=== PATIENT | male | born 1940 | race Hispanic/Latino ===

== ENCOUNTER 2017-12-28 12:11 | Emergency (ER) | payer MEDICARE, OTHER ==
[~2017-12-28 12:11] MED LIST: AMLODIPINE BESY10 MG PO; ANTIVERT25 MG PO; ASPIR 8181 MG PO; AVODART0.5 MG PO; LEVAQUIN500 MG PO; MULTIPLE VITAM1 EAC1 PO; PRAZOSIN HCL2 MG PO; VITAMIN D-32000 UNIT PO
[2017-12-28] MEDS ORDERED: ONDANSETRON HCL 4 MG ORAL DISINTEGRATING TAB SL ONE (12:45)
[2017-12-28] MEDS ORDERED: ZOFRAN ODT4 MG SL (14:10)
== END 2017-12-28 14:25 | disposition home or self-care (01) ==
LOC: FSED 12:11
DX: R11.0 Nausea (principal); I10 Essential (primary) hypertension
CPT/HCPCS: 71046; 80048; 80076; 82553; 84484; 85025; 87400; 93005; 99283

== ENCOUNTER → 2018-01-13 | Outpatient (CLI) | payer MEDICARE, OTHER ==
[~2018-01-13] MED LIST changes: +ZOFRAN ODT4 MG SL
--- NOTE | 2018-01-13 12:48 | Diagnostic Imaging Report ---
History:Headaches, nausea, dizziness Comparison studies:None Technique: Axial images were obtained from the skull base to the vertex. Coronal and sagittal images reconstructed from the axial data. Intravenous contrast: None Findings: Scalp/skull: No abnormalities. Extra-axial spaces: No masses. No fluid collections. Brain sulci: Age-appropriate. Ventricles: Age-appropriate. No hydrocephalus. Parenchyma: Subcentimeter hypodensity at the left basal ganglia region, could be related to prominent perivascular space or chronic lacunar infarct, no other abnormal density. No masses, hemorrhage, acute or chronic cortical vascular insults. Sellar/suprasellar region: No abnormalities. Craniocervical junction: Patent foramen magnum. No Chiari one malformation. Incidental findings: Atherosclerotic calcifications in the carotid siphons . Impression: No acute abnormalities. Signed by: DR Fernie Vidal M.D. on 01/13/2018 12:44 PM
== END ==
LOC: CT 10:58
PROVIDERS: ATTEND Family Medicine
DX: R42 Dizziness and giddiness (principal); R51 Headache
CPT/HCPCS: 70450

== ENCOUNTER → 2018-03-30 | Outpatient (CLI) | payer MEDICARE, OTHER ==
--- NOTE | 2018-03-30 10:38 | Diagnostic Imaging Report ---
PROCEDURE:C-SPINE COMPLETE COMPARISON:None. INDICATIONS:RIGHT SIDE NECK PAIN 1 MONTH FINDINGS: The lateral view is visualized from the skull base to the lower aspect of C7. The vertebral bodies are well-aligned. There are no fractures, lytic or blastic lesions. Mild multilevel degenerative disc changes are noted at C4-C5, C5-C6, and C6-C7 with mild bony neural foraminal stenosis at C3-C4 and C4-C5. The C1/C2-odontoid interval is normal. The pre-vertebral soft tissues are normal. CONCLUSION: No acute radiographic abnormality. Mild cervical multilevel degenerative disc changes with mild neural foraminal stenosis at C3-C4 and C4-C5. Dictated by: NICANOR BAKER M.D. on 03/30/2018 at 10:42 Electronically approved by: NICANOR BAKER M.D. on 03/30/2018 at 10:42
--- NOTE | 2018-03-30 10:42 | Diagnostic Imaging Report ---
PROCEDURE:L-SPINE COMPLETE COMPARISON:None. INDICATIONS:LOWER BACK PAIN 1 MONTH FINDINGS: There are five lumbar-type vertebral bodies. Mild anterolisthesis of L5 on S1. No evidence of spondylolisthesis. There are no fractures, lytic or blastic lesions. The disc-space heights are well-maintained. Mild degenerative disc changes at L3-L4, L4-L5 and L5-S1. Mild facet degenerative changes at L4-L5 and L5-S1 and mild bony neural foraminal stenosis at L5-S1. The sacroiliac joints are unremarkable. CONCLUSION: Mild degenerative endplate and facet degenerative changes in the lower lumbar spine with mild bony neural foraminal stenosis at L5-S1. No evidence of fracture. Dictated by: NICANOR BAKER M.D. on 03/30/2018 at 10:46 Electronically approved by: NICANOR BAKER M.D. on 03/30/2018 at 10:46
== END ==
LOC: RAD 09:28
PROVIDERS: ATTEND Family Medicine
DX: M47.896 Other spondylosis, lumbar region (principal); M54.2 Cervicalgia; M79.652 Pain in left thigh; M79.651 Pain in right thigh
CPT/HCPCS: 72050; 72110

== ENCOUNTER 2018-04-16 07:47 | Emergency (ER) | payer MEDICARE, OTHER ==
[~2018-04-16] VITALS: Ht 180.3 cm; Wt 104.3 kg
[2018-04-16] MEDS ORDERED: TIZANIDINE HCL4 MG PO (08:17)
[2018-04-16] MEDS ORDERED: LOSARTAN POTAS100 MG PO (08:17)
[2018-04-16] MEDS ORDERED: ULTRAM 50MG50 MG PO (08:17)
== END 2018-04-16 08:30 | disposition home or self-care (01) ==
LOC: FSED 07:47
DX: M54.5 Low back pain (principal); S39.012A Strain of muscle, fascia and tendon of lower back, initial encounter; I10 Essential (primary) hypertension; Z87.442 Personal history of urinary calculi
CPT/HCPCS: 99283

== ENCOUNTER 2018-12-08 05:23 | Observation (INO) | payer MEDICARE, OTHER ==
[2018-12-07 09:15] LABS: BASOPHILS % 0.6 % (0.0-1.0); EOSINOPHILS # (AUTO) 0.1 (0.0-0.4); HEMATOCRIT 47.6 % (38.2-49.6); HEMOGLOBIN 16.3 g/dL (14.0-18.0); LYMPHOCYTES # (AUTO) 1.3 (1.0-3.2); LYMPHOCYTES % 19.2 % (18.0-39.1); MEAN CORPUSCULAR HEMOGLOBIN 33.3 pg (28-32); MEAN CORPUSCULAR HGB CONC 34.2 g/dL (31-35); MEAN CORPUSCULAR VOLUME 97.1 fL (81-99); MONOCYTES # (AUTO) 0.4 (0.2-0.8); MONOCYTES % 5.2 % (4.4-11.3); NEUTROPHILS % 73.6 % (38.7-80.0); PLATELET COUNT 159 x10e3/uL (140-360); RED CELL DISTRIBUTION WIDTH 13.1 % (11.7-14.4)
--- NOTE | 2018-12-07 09:18 | Diagnostic Imaging Report ---
EXAMINATION: CHEST 2 VIEWS INDICATION: Pre-op. COMPARISON: None FINDINGS: TUBES and LINES: None. LUNGS: Lungs are well inflated. There is no evidence of pneumonia or pulmonary edema. PLEURA: No pleural effusion or pneumothorax. HEART AND MEDIASTINUM: The cardiomediastinal silhouette is unremarkable. BONES AND SOFT TISSUES: No acute osseous abnormality. UPPER ABDOMEN: No free air under the diaphragm. IMPRESSION: No acute radiographic abnormality. Signed by: Dr. Rachel Torres MD on 12/07/2018 9:14 AM
[2018-12-08] VITALS (7 sets, daily range): BP systolic 123–135; BP diastolic 58–94
[~2018-12-08] VITALS: Ht 180.3 cm; Wt 105.2 kg
[~2018-12-08 05:23] MED LIST changes: +AMLODIPINE BESYL5 MG PO; +LOSARTAN POTAS100 MG PO; +MULTI-VITAMIN1 EACH PO; +PRAZOSIN HCL1 MG PO; +TIZANIDINE HCL4 MG PO; +ULTRAM 50MG50 MG PO; +VITAMIN D32000 UNI1 PO
[2018-12-08] MEDS ORDERED: GABAPENTIN 300 MG CAP ONE (05:43)
[2018-12-08] MEDS ORDERED: DEXAMETHASONE SOD PHOS 10 MG/1 ML VIAL ONE (05:43)
[2018-12-08] MEDS ORDERED: CELECOXIB 200 MG CAP ONE (05:43)
[2018-12-08] MEDS ORDERED: VANCOMYCIN 1GM/NS 250 ML 250 ML ONE (05:43)
[2018-12-08] MEDS ORDERED: TRANEXAMIC ACID 1,000 MG/10 ML ML ONE (06:26)
[2018-12-08] MEDS ORDERED: VANCOMYCIN HCL 1,000 MG ONE (06:26)
[2018-12-08] MEDS ORDERED: BACITRACIN 50,000 UNIT VIAL ONE (06:27)
[2018-12-08] MEDS ORDERED: SODIUM CHLORIDE 0.9% 500ML 500 ML ONE (06:27)
[2018-12-08] MEDS ORDERED: ROPIVACAINE 246.25 MG, EPINEPHRINE HCL 1:1000 1ML 0.5 MG, CLONIDINE HCL 0.08 MG, KETORO... INJ ONE ×5 (08:00)
[2018-12-08] MEDS: SODIUM CHLORIDE 0.9% 1000ML 1,000 ML IV SCH ×2 (09:12→19:12)
[2018-12-08] MEDS ORDERED: DOCUSATE SODIUM 100 MG CAP PO PRN (09:15)
[2018-12-08] MEDS ORDERED: DIPHENHYDRAMINE HCL INJ 50 MG/ML VIAL IM/IV PRN (09:15)
[2018-12-08] MEDS ORDERED: ZOLPIDEM TARTRATE 5 MG TAB PO PRN (09:15)
[2018-12-08] MEDS ORDERED: HYDROCODONE/APAP 5MG-325MG TAB PO PRN (09:15)
[2018-12-08] MEDS ORDERED: ONDANSETRON HCL INJ 2MG/ML 2ML 2 MG/ML VIAL IV PRN (09:15)
[2018-12-08] MEDS ORDERED: PROMETHAZINE HCL (IM) 25 MG/ML VIAL INJ PRN (09:15)
[2018-12-08] MEDS ORDERED: KETOROLAC TROMETHAMINE 30 MG/ML VIAL IV PRN (09:15)
[2018-12-08] MEDS ORDERED: ACETAMINOPHEN 650 MG SUPP PR PRN (09:15)
--- NOTE | 2018-12-08 09:58 | Diagnostic Imaging Report ---
Exam: Left knee 2 views History: Postop Comparison: None. Findings: See impression Impression: Status post total left knee replacement with intact and appropriately positioned surgical hardware. No periprosthetic displaced fracture. Expected subcutaneous gas and overlying skin saritha. Signed by: Dr. Gautam العلي M.D. on 12/08/2018 9:55 AM
--- NOTE | 2018-12-08 10:02 | NUR ---
Received patient from PACU at this time. Patient is awake in bed, brannon wrap and ice pack on L leg. Patient complains of very mild pain. Lung sounds clear. Bowel sounds active. Skin intact. IV to L Hand asymptomatic, intact, and patent. Oriented to room, call light system, phone, visiting hours. Patient's is at bedside. Bed locked in lowest position, call light in reach. Stressed importance of staying in bed until PT comes to work with him. Provided urinal. Will continue to monitor.
[2018-12-08] MEDS: ACETAMINOPHEN 1000 MG/100 ML IV SCH ×2 (12:37→17:45)
--- NOTE | 2018-12-08 14:45 | NUR ---
Visit made by the Spiritual Care Department Pastoral Visitor, Lulú Aranda. Pt sleeping soundly and no family present. Pastoral Visitor left a card describing availability of fund controller and instructions on how to contact a fund controller. EDWARDO MARQUEZ Computer Graphics Illustrator Spiritual Care Department O: [phone] Pager: [phone] ([phone] number calling from)
--- NOTE | 2018-12-08 15:07 | Operative Report ---
DATE OF PROCEDURE: 12/08/2018 SURGEON: Gautam Jo MD TELECOM ENGINEER: Joshua Cruz, certified PA. PREOPERATIVE DIAGNOSIS: Osteoarthritis, left knee. POSTOPERATIVE DIAGNOSIS: Osteoarthritis, left knee. PROCEDURE: Left total knee arthroplasty. INDICATIONS: The patient is a 78-year-old active gentleman, who has end-stage arthritis of his left knee. He has failed conservative management and would like to proceed with a left total knee replacement. The risks and benefits have been explained. 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 He states he understands and wishes to proceed. PROCEDURE IN DETAIL: The patient was brought to the operating room and placed under general anesthetic. He received prophylactic antibiotics, a regional block and tranexamic acid in the holding area. His left lower extremity was prepped and draped in a sterile manner. A preoperative time-out was performed. The extremity was exsanguinated and a proximal tourniquet was inflated to 300 mmHg. An anterior approach with a medial parapatellar arthrotomy was performed. Clear synovial fluid was removed from the joint. Soft tissue releases were performed to bring the knee up into flexion with the patella everted. Meniscal remnants, marginal osteophytes in the cruciate ligaments were sacrificed. A [employer] Person[employer] knee system was used throughout the case. An extramedullary cutting guide was used to resect the proximal tibia. Polished subchondral bone was noted on the medial aspect. A +4 mm cut was made referencing off the medial compartment. The tibial base plate was noted to be a size #F. The central fin punch was impacted and attention was directed toward the distal femur. An intramedullary cutting guide was used to resect the distal femur in 5 degrees of valgus and 3 degrees of external rotation. Rotation was also referenced off the epicondylar axis, Whitesides line and the posterior condyles. The femoral component was a size #11. The anterior and posterior cuts were made. Trial reductions were performed. A 10 mm medial congruent tibial insert provided appropriate soft tissue balancing in full extension and 90 degrees of flexion. The patella was resurfaced with a 35 mm patella. The thickness was checked before and after and was right at 23 mm. Patellar tracking was noted to be concentric. The trial implants were removed. A 100 mL premixed pericapsular injection was placed into the surrounding soft tissue. The knee was thoroughly irrigated with a shower tip pulsatile lavage. The knee had been thoroughly irrigated numerous times throughout the case with a diluted mixture of polymyxin and vancomycin spray. The components were cemented into place using a single mix of high viscosity Simplex cement preloaded with antibiotics. Care was taken to remove extravasated cement. The wound was further irrigated with the pulsatile lavage while the cement cured. 500 mg of vancomycin powder was then sprinkled into the joint. The arthrotomy was closed with interrupted #1 Ethibond. The knee was put through flexion and extension to ensure a secure closure. The skin was closed with subcuticular Vicryl and saritha. A sterile Aquacel bandage was applied. He was extubated and transported to the recovery room in stable condition. Blood loss was minimal. All needle and sponge counts were correct. Gautam Jo MD DR/MASOUD /[id number] MTDSage
[2018-12-08] MEDS: CELECOXIB 200 MG CAP PO SCH (17:10)
[2018-12-08] MEDS: ASPIRIN 325 MG TAB PO SCH (17:10)
[2018-12-08] MEDS: HYDROCODONE/APAP 7.5MG-325MG 1 EA TAB PO PRN (17:16)
--- NOTE | 2018-12-08 17:18 | NUR ---
Patient ambulating on his own to the bathroom. Patient encouraged to call for assistance d/t having knee surgery today and his leg was still buckling during therapy. Patient verbalized understanding
--- NOTE | 2018-12-08 18:00 | NUR ---
Patient is in CPM at 50 degrees at this time. Tolerating well.
[2018-12-08] MEDS: VANCOMYCIN 1GM/NS 250 ML 250 ML IV SCH (18:03)
[2018-12-08] MEDS ORDERED: ONDANSETRON HCL INJ 2MG/ML 2ML 2 MG/ML VIAL ONE (19:05)
[2018-12-08] MEDS ORDERED: SEVOFLURANE INHAL SOLN 250 ML PEN BTL ONE (19:05)
[2018-12-08] MEDS ORDERED: LIDOCAINE HCL 2% LOCAL INJ 5 ML SDV VIAL INJ ONE (19:05)
[2018-12-08] MEDS ORDERED: PHENYLEPHRINE HCL 1% 10 MG/ML VIAL ONE (19:05)
[2018-12-08] MEDS ORDERED: DEXAMETHASONE SOD PHOS INJ 4 MG/ML VIAL ONE (19:05)
[2018-12-08] MEDS ORDERED: PROPOFOL IV EMULSION 10 MG/ML 20 ML VIAL ONE (19:05)
[2018-12-08] MEDS ORDERED: ROPIVACAINE 0.5% 5 MG/ML 30 ML SDV ONE (19:06)
[2018-12-08] MEDS ORDERED: LIDOCAINE 2%/ EPINEPHRINE 20ML MDV ONE (19:06)
[2018-12-08] MEDS ORDERED: FENTANYL CITRATE/PF 100MCG/2 ML INJ ONE (19:13)
[2018-12-08] MEDS ORDERED: MIDAZOLAM HCL 2 MG/2 ML VIAL ONE (19:13)
[2018-12-08] MEDS: ALBUTEROL/IPRATROPIUM 3 ML NEB NEB SCH (19:25)
[2018-12-08] MEDS ORDERED: PRAZOSIN HCL 1 MG CAP PO SCH (21:00)
--- NOTE | 2018-12-08 23:34 | Consultation ---
DATE OF CONSULTATION: 12/08/2018 REASON FOR CONSULTATION: Medical management. HISTORY OF PRESENT ILLNESS: This is a 78-year-old white man, who underwent elective left total knee replacement today. He has underlying history of hypertension and mild obesity. The patient states his pain is actually controlled. He does have slight discomfort in the left inguinal area. The patient did receive a regional block for this surgery. The surgery was performed by Dr. Gautam Jo, his orthopedic surgeon. REVIEW OF SYSTEMS: GENERAL: Weight is stable. No fever or chills. The patient states that he has had fatigue for the last year. HEENT: No headaches. No visual changes.CARDIOVASCULAR/RESPIRATORY: No chest pain. No shortness of breath. No cough. No dyspnea on exertion. GASTROINTESTINAL: No nausea, vomiting, diarrhea, or constipation. GENITOURINARY: The patient denies any BPH or UTI symptoms. The Schmidt catheter has been removed. NEUROMUSCULAR: Has mild arthritic pain in his right knee. FAMILY HISTORY: Noncontributory. SOCIAL HISTORY: This man is . He lives with his . He is retired. He does smoke tobacco. He drinks alcohol rarely. PAST MEDICAL HISTORY: 1. Hypertensive heart disease. 2. Severe left knee degenerative joint disease. 3. Benign prostatic hypertrophy. 4. Right knee degenerative joint disease (mild). ALLERGIES: SULFA ANTIBIOTICS. PAST SURGICAL HISTORY: 1. Left total knee replacement today. 2. TURP. HOME MEDICATIONS: 1. Vitamin D3 1000 international units daily. 2. Tizanidine 2 mg daily. 3. Valsartan 40 mg daily. 4. Prazosin 1 mg at bedtime. 5. Multivitamin daily. 6. Aspirin 81 mg daily. 7. Amlodipine 10 mg daily. PHYSICAL EXAMINATION: GENERAL: He is awake, alert, and fluent. No distress. Very pleasant. VITAL SIGNS: Height 5 feet 11 inches, weighs 232 pounds, BMI is 32, blood pressure is 124/62, oxygen saturation 92% on room air, respiratory rate 18, pulse 88, temperature 96.1. INTEGUMENT: Skin is warm and dry. No pallor, jaundice, or diaphoresis. HEENT: Anterior sclerae. Moist mucous membranes. The patient has Judson's sign in the bilateral ear lobes. NECK: Supple. No evidence of jugular venous distention. CARDIOVASCULAR: Distant heart sounds. Regular rate and rhythm. LUNGS: The patient has poor air entry bilaterally. ABDOMEN: Soft. Normal bowel sounds. EXTREMITIES: The patient's left knee is currently dressed. NEUROLOGIC: Intact. DIAGNOSES: 1. Status post left total knee replacement. 2. Hypertensive heart disease. 3. Mild obesity, BMI 32. 4. Benign prostatic hypertrophy. PLAN: 1. We will check a serum vitamin B12 level since he is having fatigue. 2. We will also check complete blood count since he underwent a surgery today. 3. We will follow electrolytes and renal function. 4. Continue losartan and amlodipine for blood pressure control. 5. Splint. 6. Encourage incentive spirometer use to prevent atelectasis. 7. We will mobilize his therapy. 8. Pain control. I spent 40 minutes in the care of this patient. I would like to thank Dr. Gautam Jo for his generous consult. MD XAVIER Coronel/MASOUD /[id number] MTDD
[2018-12-09] VITALS: BP 124/58
[2018-12-09] MEDS: ACETAMINOPHEN 1000 MG/100 ML IV SCH ×2 (00:11→05:26)
[2018-12-09] MEDS: ALBUTEROL/IPRATROPIUM 3 ML NEB NEB SCH ×3 (01:55→11:29)
[2018-12-09 04:00] VITALS: BP 125/59
--- NOTE | 2018-12-09 05:00 | NUR ---
PLACED ON CPM AT 60
[2018-12-09] MEDS: SODIUM CHLORIDE 0.9% 1000ML 1,000 ML IV SCH (05:12)
[2018-12-09] MEDS: VANCOMYCIN 1GM/NS 250 ML 250 ML IV SCH (05:57)
[2018-12-09 06:14] LABS: BASOPHILS % 0.2 % (0.0-1.0); HEMATOCRIT 35.7 % (38.2-49.6); HEMOGLOBIN 12.6 g/dL (14.0-18.0); LYMPHOCYTES # (AUTO) 0.7 (1.0-3.2); MEAN CORPUSCULAR HGB CONC 35.3 g/dL (31-35); MEAN CORPUSCULAR VOLUME 93.5 fL (81-99); MONOCYTES # (AUTO) 0.9 (0.2-0.8); MONOCYTES % 7.3 % (4.4-11.3); NEUTROPHILS # (AUTO) 10.5 (2.1-6.9); NEUTROPHILS % 86.2 % (38.7-80.0); PLATELET COUNT 161 x10e3/uL (140-360); RED BLOOD COUNT 3.82 x10e6/uL (4.3-5.7)
[2018-12-09 06:25] LABS: ALANINE AMINOTRANSFERASE 37 IU/L (0-55); ALBUMIN 3.3 g/dL (3.5-5.0); ALBUMIN/GLOBULIN RATIO 1.4 (0.8-2.0); ALKALINE PHOSPHATASE 73 IU/L (40-150); ANION GAP 11.9 mmol/L (8-16); BLOOD UREA NITROGEN 23 mg/dL (7-26); BUN/CREATININE RATIO 23 (6-25); CALCIUM 8.9 mg/dL (8.4-10.2); CARBON DIOXIDE 22 mmol/L (22-29); CHLORIDE 108 mmol/L (98-107); CREATININE, SERUM 1.02 mg/dL (0.72-1.25); EST GLOMERULAR FILTRATION RATE > 60 ML/MIN (60-); GLUCOSE 185 mg/dL (74-118); POTASSIUM 3.9 mmol/L (3.5-5.1); SODIUM 138 mmol/L (136-145)
[2018-12-09 08:31] VITALS: BP 142/65
[2018-12-09] MEDS: ASPIRIN 325 MG TAB PO SCH (08:40)
[2018-12-09] MEDS: CELECOXIB 200 MG CAP PO SCH (08:40)
[2018-12-09] MEDS: HYDROCODONE/APAP 7.5MG-325MG 1 EA TAB PO PRN (08:40)
[2018-12-09] MEDS ORDERED: ASPIRIN325 MG PO (08:56)
[2018-12-09] MEDS ORDERED: NON-FORMULARY MEDICATION (Cholecalciferol (Vitamin D3) (Vitamin D3) 2,000 INTLU) PO SCH (09:00)
[2018-12-09] MEDS ORDERED: AMLODIPINE BESYLATE 10 MG TAB PO SCH ×2 (09:00)
[2018-12-09] MEDS ORDERED: MULTIVITAMINS/MINERALS TAB PO SCH (09:00)
[2018-12-09] MEDS ORDERED: CHOLECALCIFEROL 1,000 UNIT TAB PO SCH (09:00)
[2018-12-09] MEDS ORDERED: ACETAMINOPHEN 1000 MG/100 ML IV PRN (09:15)
[2018-12-09] MEDS ORDERED: ONDANSETRON HCL 4 MG ORAL DISINTEGRATING TAB PO PRN (10:30)
--- NOTE | 2018-12-09 11:02 | NUR ---
CASE MANAGEMENT INITIAL ASSESSMENT Automation Developer to bedside to discuss plan of care with patient/family. CM/SW role and care transitions discussed. Anticipated discharge plan discussed along with duration of care. CM/SW discussed patients right to make decisions in care. CM/SW work hours given. Patient lives: sari Mccall Admit/Transfer: from PACU Hospital/ER visits since last admit: 0 POA/Emergency contact: sari Mccall [phone] Current/Previous Home Health: none PCP/Follow-up Care: will follow up with Dr. Jo in 10 days Current/Previous DME: has walker, crutches. CPM has been delivered to bedside. Pt's walker also at bedside. Pt declines need for BSC. Medications (referring to index hospitalization or the first time you were in the hospital) a. Were changes made in your medications when you were in the hospital on [date of index hospitalization]? n/a b. Did you understand the changes? n/a c. Were you able to obtain your new medications right away? n/a d. Were you able to take your medications like the doctor wanted you to? n/a e. Did the hospital give you an accurate, easy to understand list of medications when you left? n/a Scale of 1-10 how comfortable does patient feel with disease management in outpatient settin Other Services: none Employment Status: retired Areas of Concerns: s/p left knee arthroplasty Referral Needs: home health Referral was sent from Dr. Jo's office to [facility]. CM called and spoke to Rita who said that they are able to see pt tomorrow. Operative report and PT notes faxed. P [phone] / F [phone]. Home health information was printed and given to pt. Education Needs: post operative instructions IMM/SOUZA given and signed (if applicable): SOUZA delivered and explained to pt and at bedside. He verbalized understanding. Signed copy placed in chart. Copy to pt. Goal for discharge: home with home health CM/SW left business card at the bedside with contact information. Name and number was also written on the patients whiteboard. Patient verbalized understanding of discussion. CM will follow-up with ongoing discharge and transition of care needs.
[2018-12-09] MEDS ORDERED: TIZANIDINE HCL 4 MG TAB PO SCH (12:00)
[2018-12-09] MEDS ORDERED: LOSARTAN POTASSIUM 100 MG TAB PO SCH (12:00)
[2018-12-09] MEDS ORDERED: AMLODIPINE BESYLATE 5 MG TAB PO SCH ×2 (12:00)
== END 2018-12-09 12:00 | disposition home health service (06) ==
LOC: OR 05:23 → PACU V 09:14 → MED/SURG 10:04
PROVIDERS: ADMIT Specialist; ATTEND Specialist
DX: M17.12 Unilateral primary osteoarthritis, left knee (principal); E66.9 Obesity, unspecified; I11.9 Hypertensive heart disease without heart failure; N40.0 Benign prostatic hyperplasia without lower urinary tract symptoms; Z68.31 Body mass index [BMI] 31.0-31.9, adult; Z88.8 Allergy status to other drugs, medicaments and biological substances; Z87.442 Personal history of urinary calculi; Z01.812 Encounter for preprocedural laboratory examination; Z01.811 Encounter for preprocedural respiratory examination
CPT/HCPCS: 27447; 36415 ×3; 71046; 73560; 80053; 82607; 84443; 85025 ×2; 86850; 86900; 86920; 94640 ×3; 97116 ×2; 97161; 97530; G0378 ×2; J0131 ×2; J0171; J1100 ×2; J1885; J2001 ×2; J2250; J2370; J2405; J2704; J2795; J3370 ×3; J7030 ×2; J7040

== ENCOUNTER → 2019-01-05 | Outpatient (RCR) | payer MEDICARE, OTHER ==
[~2019-01-05] MED LIST changes: +ASPIRIN325 MG PO
== END ==
LOC: PT 01-04 08:38
PROVIDERS: ATTEND Specialist
DX: M17.12 Unilateral primary osteoarthritis, left knee (principal); Z96.652 Presence of left artificial knee joint; M25.562 Pain in left knee; M25.662 Stiffness of left knee, not elsewhere classified; M62.81 Muscle weakness (generalized); R26.9 Unspecified abnormalities of gait and mobility

== ENCOUNTER → 2019-02-05 | Outpatient (RCR) | payer MEDICARE, OTHER | LOC: PT 01-08 08:10 | PROVIDERS: ATTEND Specialist | DX: Z96.652 Presence of left artificial knee joint (principal); Z47.1 Aftercare following joint replacement surgery; M17.12 Unilateral primary osteoarthritis, left knee; M25.562 Pain in left knee; M25.662 Stiffness of left knee, not elsewhere classified; M62.81 Muscle weakness (generalized); R26.9 Unspecified abnormalities of gait and mobility ==

== ENCOUNTER 2020-07-14 08:23 | Emergency (ER) | payer MEDICARE, OTHER ==
[~2020-07-14] VITALS: Ht 180.3 cm; Wt 102.1 kg
[2020-07-14] MEDS ORDERED: MECLIZINE HCL 12.5 MG TAB ONE (09:58)
[2020-07-14] MEDS ORDERED: MECLIZINE HCL12.5 MG PO (11:18)
[2020-07-14 12:49] VITALS: BP 165/94
[2020-07-15] MEDS ORDERED: MECLIZINE HCL 12.5 MG TAB PO ONE (09:00)
== END 2020-07-14 11:37 | disposition home or self-care (01) ==
LOC: FSED 08:40
DX: R42 Dizziness and giddiness (principal); I10 Essential (primary) hypertension; N40.0 Benign prostatic hyperplasia without lower urinary tract symptoms; R94.31 Abnormal electrocardiogram [ECG] [EKG]
CPT/HCPCS: 70450; 71046; 80053; 81003; 85025; 93005; 99284; J8597

== ENCOUNTER 2020-09-21 05:25 | Observation (INO) | payer MEDICARE, OTHER ==
[2020-09-18 10:40] LABS: BASOPHILS % 0.4 % (0.0-1.0); EOSINOPHILS # (AUTO) 0.1 (0.0-0.4); EOSINOPHILS % 0.6 % (0.0-6.0); HEMATOCRIT 47.5 % (38.2-49.6); HEMOGLOBIN 16.1 g/dL (14.0-18.0); LYMPHOCYTES # (AUTO) 1.4 (1.0-3.2); MEAN CORPUSCULAR HEMOGLOBIN 31.9 pg (28-32); MEAN CORPUSCULAR HGB CONC 33.9 g/dL (31-35); MEAN CORPUSCULAR VOLUME 94.2 fL (81-99); MONOCYTES # (AUTO) 0.4 (0.2-0.8); MONOCYTES % 4.7 % (4.4-11.3); NEUTROPHILS # (AUTO) 6.3 (2.1-6.9); NEUTROPHILS % 76.8 % (38.7-80.0); PLATELET COUNT 152 x10e3/uL (140-360); RED BLOOD COUNT 5.04 x10e6/uL (4.3-5.7); RED CELL DISTRIBUTION WIDTH 12.8 % (11.7-14.4)
[2020-09-18 10:52] LABS: INR 0.96; PROTHROMBIN TIME 13.4 seconds (11.9-14.5)
[2020-09-18 11:00] LABS: ANION GAP 14.7 mmol/L (8-16); BLOOD UREA NITROGEN 22 mg/dL (7-26); BUN/CREATININE RATIO 20 (6-25); CALCIUM 9.2 mg/dL (8.4-10.2); CARBON DIOXIDE 30 mmol/L (22-29); CHLORIDE 102 mmol/L (98-107); CREATININE, SERUM 1.11 mg/dL (0.72-1.25); EST GLOMERULAR FILTRATION RATE > 60 ML/MIN (60-); GLUCOSE 104 mg/dL (74-118); POTASSIUM 4.7 mmol/L (3.5-5.1); SODIUM 142 mmol/L (136-145)
[~2020-09-21] VITALS: Ht 180.3 cm; Wt 99.3 kg
[~2020-09-21 05:25] MED LIST changes: +ACETAMINOPHEN325 M1 PO; +ASPIRIN81 MG PO; +DIVALPROEX SOD500 M1 PO; +MECLIZINE HCL12.5 MG PO
[2020-09-21] MEDS ORDERED: CEFAZOLIN SOD 1 GM/NS 50ML 0 ML IV ONE (05:55)
[2020-09-21] MEDS ORDERED: VANCOMYCIN HCL 1 GM VIAL ONE (06:49)
[2020-09-21] MEDS ORDERED: BUPIVACAINE 0.25%/EPI 30ML SDV INJ ONE (06:49)
[2020-09-21] MEDS ORDERED: THROMBIN FOR SOLN 5,000 UNIT VIAL ONE (06:49)
[2020-09-21] MEDS ORDERED: VANCOMYCIN 1GM/NS 250 ML 250 ML ONE (07:00)
[2020-09-21] MEDS ORDERED: IBUPROFEN 800MG/ 200ML 200 ML IV ONE (07:48)
[2020-09-21] MEDS ORDERED: LIDOCAINE HCL (LTA) 4 ML SOLN ONE (07:48)
[2020-09-21] MEDS ORDERED: ACETAMINOPHEN 1000 MG/100 ML 100 ML IV ONE (07:48)
[2020-09-21] MEDS ORDERED: DEPAKOTE ER 500MG TAB(ONCE DAILY) PO SCH (08:45)
[2020-09-21] MEDS ORDERED: MAGNESIUM/ALUMINUM/SIMETHICONE 30 ML UDC PO PRN (08:45)
[2020-09-21] MEDS ORDERED: PROMETHAZINE HCL (IM) 25 MG/ML VIAL IM PRN (08:45)
[2020-09-21] MEDS ORDERED: ONDANSETRON HCL INJ 2MG/ML 2ML 2 MG/ML VIAL IV PRN (08:45)
[2020-09-21] MEDS ORDERED: MORPHINE SULFATE INJ 4 MG/ML INJ 1ML IM PRN (08:45)
[2020-09-21] MEDS ORDERED: ACETAMINOPHEN 325 MG TAB PO PRN (08:45)
[2020-09-21] MEDS ORDERED: ZOLPIDEM TARTRATE 5 MG TAB PO PRN (08:45)
[2020-09-21] MEDS ORDERED: CEPACOL SORE THROAT LOZENGES PO PRN (08:45)
[2020-09-21] MEDS ORDERED: HYDROMORPHONE 2MG/ML 2 MG/ML ML IV PRN (08:45)
[2020-09-21] MEDS ORDERED: NORCO 7.5-3251 EACH PO (08:46)
[2020-09-21] MEDS ORDERED: NORCO 10-325 T1 EACH PO (08:50)
[2020-09-21] MEDS ORDERED: ULTRAM50 MG PO (08:52)
[2020-09-21] MEDS ORDERED: HYDROCODON-ACE1 EA12 PO (08:55)
[2020-09-21] MEDS ORDERED: FENTANYL CITRATE/PF 100MCG/2 ML INJ ONE (09:24)
[2020-09-21 10:25] VITALS: BP 147/82
[2020-09-21] MEDS: LACTATED RINGER'S 1,000 ML IV SCH ×2 (10:30→18:50)
[2020-09-21] MEDS ORDERED: ACETAMIN/BUTALBITAL/CAFFEINE TAB PO PRN (10:30)
[2020-09-21 10:34] VITALS: BP 147/82
[2020-09-21] MEDS ORDERED: LOSARTAN POTASSIUM 100 MG TAB PO SCH (12:00)
[2020-09-21 12:27] VITALS: BP 141/85
[2020-09-21] MEDS: MULTIVITAMINS/MINERALS TAB PO SCH (12:34)
[2020-09-21] MEDS ORDERED: EPHEDRINE SULFATE INJ 50 MG/ML VIAL ONE (13:39)
[2020-09-21] MEDS ORDERED: SEVOFLURANE INHAL SOLN 250 ML PEN BTL ONE (13:39)
[2020-09-21] MEDS ORDERED: ONDANSETRON HCL INJ 2MG/ML 2ML 2 MG/ML VIAL ONE (13:39)
[2020-09-21] MEDS ORDERED: ROCURONIUM BROMIDE 10 MG/ML 5ML VIAL IV ONE (13:39)
[2020-09-21] MEDS ORDERED: GLYCOPYRROLATE INJ 0.2 MG/ML VIAL ONE (13:39)
[2020-09-21] MEDS ORDERED: PROPOFOL IV EMULSION 10 MG/ML 20 ML VIAL ONE (13:39)
[2020-09-21] MEDS ORDERED: LIDOCAINE HCL 2% LOCAL INJ 5 ML SDV VIAL INJ ONE (13:39)
[2020-09-21] MEDS ORDERED: DEXAMETHASONE SOD PHOS INJ 4 MG/ML VIAL ONE (13:39)
[2020-09-21] MEDS ORDERED: NEOSTIGMINE 1 MG/ML 10ML VIAL ONE (13:39)
[2020-09-21] MEDS ORDERED: LIDOCAINE HCL 2% JELLY 5 ML TUBE ONE (13:39)
[2020-09-21] MEDS: OXYCODONE/ACETAMINOPHEN 5-325 1 EACH TABLET PO PRN ×2 (16:07→21:11)
[2020-09-21] MEDS: CARISOPRODOL 350 MG TAB PO PRN ×2 (16:08→21:12)
[2020-09-21 16:20] VITALS: BP 130/76
[2020-09-21] MEDS: VANCOMYCIN 1GM/NS 250 ML 250 ML IV SCH (17:41)
[2020-09-21] MEDS ORDERED: VANCOMYCIN 1GM/NS 250 ML 250 ML IV SCH (18:00)
[2020-09-21 20:00] VITALS: BP_SYST 130; BP_SYST 131; BP_DIAS 73; BP_DIAS 76
[2020-09-21] MEDS ORDERED: TIZANIDINE HCL 4 MG TAB PO SCH (20:00)
[2020-09-21] MEDS ORDERED: PRAZOSIN HCL 1 MG CAP PO SCH (21:00)
[2020-09-22] VITALS: BP 130/78
[2020-09-22] MEDS: LACTATED RINGER'S 1,000 ML IV SCH (02:06)
[2020-09-22 04:00] VITALS: BP 121/71
[2020-09-22] MEDS ORDERED: AMLODIPINE BESYLATE 10 MG TAB PO SCH (05:00)
[2020-09-22] MEDS: VANCOMYCIN 1GM/NS 250 ML 250 ML IV SCH (05:53)
[2020-09-22] MEDS: OXYCODONE/ACETAMINOPHEN 5-325 1 EACH TABLET PO PRN (07:56)
[2020-09-22] MEDS: CARISOPRODOL 350 MG TAB PO PRN (07:56)
[2020-09-22 08:00] VITALS: BP 132/61
[2020-09-22] MEDS: MULTIVITAMINS/MINERALS TAB PO SCH (08:02)
[2020-09-22 08:09] VITALS: BP 132/61
[2020-09-22] MEDS ORDERED: DIVALPROEX SODIUM 250 MG TAB...DR PO SCH (09:00)
== END 2020-09-22 08:49 | disposition home or self-care (01) ==
LOC: OR 05:25 → PACU V 08:44 → MED/SURG 09:53
PROVIDERS: ADMIT Neurological Surgery; ATTEND Neurological Surgery
DX: M48.062 Spinal stenosis, lumbar region with neurogenic claudication (principal); I10 Essential (primary) hypertension; M19.90 Unspecified osteoarthritis, unspecified site; Z96.652 Presence of left artificial knee joint; Z87.442 Personal history of urinary calculi; Z88.2 Allergy status to sulfonamides; Z88.8 Allergy status to other drugs, medicaments and biological substances; Z20.828 Contact with and (suspected) exposure to other viral communicable diseases
CPT/HCPCS: 36415; 63047; 63048; 71046; 72020; 80048; 85025; 85610; 85730; 86850; 86900; 88304; 88311; 93005; G0378 ×2; J0131; J1100; J1170; J2001 ×2; J2405; J2704; J2710; J3010; J3370 ×3; U0002; J0690

== ENCOUNTER 2020-11-02 03:47 | Emergency (ER) | payer MEDICARE, OTHER ==
[~2020-11-02] VITALS: Ht 180.3 cm; Wt 99.3 kg
[~2020-11-02 03:47] MED LIST changes: +HYDROCODON-ACE1 EA12 PO; +NORCO 10-325 T1 EACH PO; +NORCO 7.5-3251 EACH PO; +ULTRAM50 MG PO
[2020-11-02] MEDS ORDERED: GOLYTELY SOLU4000 M1 PO (04:19)
== END 2020-11-02 04:25 | disposition home or self-care (01) ==
LOC: ER 04:06
DX: K59.00 Constipation, unspecified (principal); R10.30 Lower abdominal pain, unspecified; I10 Essential (primary) hypertension; M54.9 Dorsalgia, unspecified; G89.29 Other chronic pain; Z87.19 Personal history of other diseases of the digestive system
CPT/HCPCS: 99282

== ENCOUNTER 2020-12-30 09:40 | Emergency (ER) | payer MEDICARE, OTHER ==
[~2020-12-30] VITALS: Ht 180.3 cm; Wt 99.8 kg
[~2020-12-30 09:40] MED LIST changes: +GOLYTELY SOLU4000 M1 PO
[2020-12-30] MEDS ORDERED: SODIUM CHLORIDE 0.9% 1000ML 1,000 ML IV STA (10:22)
[2020-12-30] MEDS ORDERED: ONDANSETRON HCL INJ 2MG/ML 2ML 2 MG/ML VIAL IV ONE (10:30)
[2020-12-30] MEDS ORDERED: KETOROLAC TROMETHAMINE 30 MG/ML VIAL IV ONE (10:30)
[2020-12-30] MEDS ORDERED: SODIUM CHLORIDE 0.9% 50ML 50 ML ONE (10:49)
[2020-12-30] MEDS ORDERED: IOPAMIDOL 370 MG/ML 200 ML INFUS..BTL INJ ONE (10:49)
[2020-12-30] MEDS ORDERED: FAMOTIDINE 20 MG/2 ML VIAL IV ONE ×2 (11:00→11:14)
[2020-12-30] MEDS ORDERED: ONDANSETRON HCL INJ 2MG/ML 2ML 2 MG/ML VIAL ONE (11:13)
[2020-12-30] MEDS ORDERED: KETOROLAC TROMETHAMINE 30 MG/ML VIAL ONE (11:13)
[2020-12-30] MEDS ORDERED: SODIUM CHLORIDE 0.9% 1000ML 1,000 ML ONE (11:14)
[2020-12-30] MEDS ORDERED: ZOFRAN4 MG PO (11:40)
[2020-12-30] MEDS ORDERED: FAMOTIDINE20 MG PO (11:40)
[2020-12-30] MEDS ORDERED: MAALOX MAXIMUM355 ML PO (11:40)
[2020-12-30 11:44] VITALS: BP 177/84
== END 2020-12-30 12:05 | disposition home or self-care (01) ==
LOC: FSED 09:46
DX: R10.33 Periumbilical pain (principal); R14.0 Abdominal distension (gaseous); R11.0 Nausea; K52.9 Noninfective gastroenteritis and colitis, unspecified; I10 Essential (primary) hypertension; M54.9 Dorsalgia, unspecified; G89.29 Other chronic pain; Z87.19 Personal history of other diseases of the digestive system
CPT/HCPCS: 74177; 80053; 81003; 85025; 96374; 96375; 96376; 99284; J1885; J2405; J7030; Q9967

== ENCOUNTER → 2021-01-02 | Outpatient (CLI) | payer MEDICARE, OTHER ==
[~2021-01-02] MED LIST changes: +FAMOTIDINE20 MG PO; +MAALOX MAXIMUM355 ML PO; +ZOFRAN4 MG PO
== END ==
LOC: RAD 15:07
PROVIDERS: ATTEND Internal Medicine
DX: Z01.818 Encounter for other preprocedural examination (principal)
CPT/HCPCS: 71046

== ENCOUNTER → 2021-01-19 | Day surgery (SDC) | payer MEDICARE, OTHER ==
[2021-01-16 10:50] LABS: BASOPHILS % 0.4 % (0.0-1.0); EOSINOPHILS # (AUTO) 0.1 (0.0-0.4); EOSINOPHILS % 0.5 % (0.0-6.0); HEMATOCRIT 46.8 % (38.2-49.6); HEMOGLOBIN 16.3 g/dL (14.0-18.0); LYMPHOCYTES # (AUTO) 1.5 (1.0-3.2); MEAN CORPUSCULAR HEMOGLOBIN 31.7 pg (28-32); MEAN CORPUSCULAR HGB CONC 34.8 g/dL (31-35); MEAN CORPUSCULAR VOLUME 91.1 fL (81-99); MONOCYTES # (AUTO) 0.5 (0.2-0.8); MONOCYTES % 4.5 % (4.4-11.3); NEUTROPHILS # (AUTO) 8.5 (2.1-6.9); NEUTROPHILS % 80.4 % (38.7-80.0); PLATELET COUNT 167 x10e3/uL (140-360); RED BLOOD COUNT 5.14 x10e6/uL (4.3-5.7); RED CELL DISTRIBUTION WIDTH 12.8 % (11.7-14.4)
[~2021-01-19] MED LIST changes: +FENTANYL CITRATE/PF 100MCG/2 ML INJ ONE; +HYOSCYAMINE SULFATE 0.5 MG/ML INJ ONE; +LIDOCAINE HCL 2% LOCAL INJ 5 ML SDV VIAL INJ ONE; +PROPOFOL IV EMULSION 10 MG/ML 20 ML VIAL ONE
[2021-01-19 18:30] VITALS: BP 147/95
== END | disposition home or self-care (01) ==
LOC: OR 11:30
PROVIDERS: ATTEND Internal Medicine Gastroenterology
DX: R10.30 Lower abdominal pain, unspecified (principal); D12.2 Benign neoplasm of ascending colon; K29.70 Gastritis, unspecified, without bleeding; K57.30 Diverticulosis of large intestine without perforation or abscess without bleeding; K21.00 Gastro-esophageal reflux disease with esophagitis, without bleeding; K64.8 Other hemorrhoids; I10 Essential (primary) hypertension; R63.4 Abnormal weight loss; Z88.1 Allergy status to other antibiotic agents; Z88.2 Allergy status to sulfonamides; Z01.810 Encounter for preprocedural cardiovascular examination; Z01.812 Encounter for preprocedural laboratory examination; Z20.822 Contact with and (suspected) exposure to COVID-19; Z87.442 Personal history of urinary calculi
CPT/HCPCS: 36415; 43239; 45385; 85025; 88305; 88312; J1980; J2001; J2704; J3010; U0002

== ENCOUNTER 2021-01-20 11:21 | Emergency (ER) | payer MEDICARE, OTHER ==
[~2021-01-20] VITALS: Ht 180.3 cm; Wt 99.8 kg
[~2021-01-20 11:21] MED LIST changes: -FENTANYL CITRATE/PF 100MCG/2 ML INJ ONE; -HYOSCYAMINE SULFATE 0.5 MG/ML INJ ONE; -LIDOCAINE HCL 2% LOCAL INJ 5 ML SDV VIAL INJ ONE; -PROPOFOL IV EMULSION 10 MG/ML 20 ML VIAL ONE
[2021-01-20] MEDS ORDERED: SODIUM CHLORIDE 0.9% 500ML 500 ML IV ONE (12:00)
[2021-01-20] MEDS ORDERED: PANTOPRAZOLE 40 MG 10ML VIAL IV NR (12:00)
[2021-01-20 12:44] LABS: BASOPHILS % 0.4 % (0.0-1.0); EOSINOPHILS % 0.4 % (0.0-6.0); HEMATOCRIT 49.5 % (38.2-49.6); HEMOGLOBIN 17.1 g/dL (14.0-18.0); LYMPHOCYTES # (AUTO) 1.4 (1.0-3.2); LYMPHOCYTES % 17.7 % (18.0-39.1); MEAN CORPUSCULAR HEMOGLOBIN 31.4 pg (28-32); MEAN CORPUSCULAR HGB CONC 34.5 g/dL (31-35); MEAN CORPUSCULAR VOLUME 90.8 fL (81-99); MONOCYTES # (AUTO) 0.5 (0.2-0.8); MONOCYTES % 5.7 % (4.4-11.3); NEUTROPHILS # (AUTO) 6.2 (2.1-6.9); NEUTROPHILS % 75.6 % (38.7-80.0); PLATELET COUNT 179 x10e3/uL (140-360); RED BLOOD COUNT 5.45 x10e6/uL (4.3-5.7); RED CELL DISTRIBUTION WIDTH 12.9 % (11.7-14.4)
[2021-01-20 12:59] LABS: CLARITY,URINE CLEAR (CLEAR); COLOR,URINE YELLOW (YELLOW)
[2021-01-20 13:00] LABS: KETONES,URINE NEGATIVE (NEGATIVE); LEUKOCYTE ESTERASE ,URINE NEGATIVE (NEGATIVE); NITRITE,URINE NEGATIVE (NEGATIVE); PROTEIN,URINE DIPSTICK NEGATIVE (NEGATIVE); URINE UROBILINOGEN 0.2 mg/dL (0.2 - 1)
[2021-01-20 13:01] LABS: INR 1.3; PROTHROMBIN TIME 16.9 seconds (11.9-14.5)
[2021-01-20 13:02] LABS: PARTIAL THROMBOPLASTIN TIME 64.1 seconds (23.8-35.5)
[2021-01-20 13:05] LABS: ALBUMIN 4.4 g/dL (3.5-5.0); ALBUMIN/GLOBULIN RATIO 1.2 (0.8-2.0); ANION GAP 15.7 mmol/L (8-16); CALCIUM 10.1 mg/dL (8.4-10.2); CREATININE, SERUM 1.36 mg/dL (0.72-1.25); POTASSIUM 3.7 mmol/L (3.5-5.1)
[2021-01-20 13:10] LABS: BACTERIA,URINE RARE /HPF; EPITHELIAL CELLS,URINE FEW /LPF; RBC,URINE 0-5 /HPF (0-5); WBC,URINE (MAN) 0-5 /HPF (0-5)
== END 2021-01-20 16:40 | disposition home or self-care (01) ==
LOC: ER 11:42
DX: K91.840 Postprocedural hemorrhage of a digestive system organ or structure following a digestive system procedure (principal); I10 Essential (primary) hypertension; M54.9 Dorsalgia, unspecified; G89.29 Other chronic pain; Z87.19 Personal history of other diseases of the digestive system
CPT/HCPCS: 36415; 80053; 81001; 85025; 85610; 85730; 87086; 99283; C9113; J7040

== ENCOUNTER 2021-01-25 09:09 | Emergency (ER) | payer MEDICARE, OTHER ==
[~2021-01-25] VITALS: Ht 180.3 cm; Wt 90.7 kg
[2021-01-25 11:32] VITALS: BP 138/72
== END 2021-01-25 11:35 | disposition home or self-care (01) ==
LOC: FSED 10:32
DX: R53.83 Other fatigue (principal); I10 Essential (primary) hypertension; F41.9 Anxiety disorder, unspecified; R94.31 Abnormal electrocardiogram [ECG] [EKG]; M54.9 Dorsalgia, unspecified; G89.29 Other chronic pain; Z87.19 Personal history of other diseases of the digestive system
CPT/HCPCS: 93005; 99283

== ENCOUNTER 2021-05-08 07:32 | Observation (INO) | payer MEDICARE, OTHER ==
[2021-05-07 09:23] LABS: BASOPHILS % 0.4 % (0.0-1.0); EOSINOPHILS # (AUTO) 0.1 (0.0-0.4); EOSINOPHILS % 0.8 % (0.0-6.0); HEMATOCRIT 46.3 % (38.2-49.6); HEMOGLOBIN 15.7 g/dL (14.0-18.0); LYMPHOCYTES # (AUTO) 1.6 (1.0-3.2); MEAN CORPUSCULAR HEMOGLOBIN 32.3 pg (28-32); MEAN CORPUSCULAR HGB CONC 33.9 g/dL (31-35); MEAN CORPUSCULAR VOLUME 95.3 fL (81-99); MONOCYTES # (AUTO) 0.5 (0.2-0.8); MONOCYTES % 5.5 % (4.4-11.3); NEUTROPHILS # (AUTO) 7.1 (2.1-6.9); NEUTROPHILS % 75.9 % (38.7-80.0); PLATELET COUNT 174 x10e3/uL (140-360); RED BLOOD COUNT 4.86 x10e6/uL (4.3-5.7); RED CELL DISTRIBUTION WIDTH 12.9 % (11.7-14.4)
[~2021-05-08] VITALS: Ht 180.3 cm; Wt 100.2 kg
[~2021-05-08 07:32] MED LIST changes: +METOPROLOL SUCC25 MG PO; +PRISTIQ ER50 MG PO; +ROPIVACAINE 246.25 MG, EPINEPHRINE HCL 1:1000 1ML 0.5 MG, CLONIDINE HCL 0.08 MG, KETORO... INJ ONE; +VIT B12 PO
[2021-05-08] MEDS ORDERED: DEXAMETHASONE SOD PHOS 10 MG/1 ML VIAL ONE (08:42)
[2021-05-08] MEDS ORDERED: CELECOXIB 200 MG CAP ONE (08:42)
[2021-05-08] MEDS ORDERED: GABAPENTIN 300 MG CAP ONE (08:43)
[2021-05-08] MEDS ORDERED: SODIUM CHLORIDE 0.9% 50ML 100 ML ONE (08:43)
[2021-05-08] MEDS ORDERED: Vancomycin IV 1,000 MG ONE (08:55)
[2021-05-08] MEDS ORDERED: SODIUM CHLORIDE 0.9% 500ML 500 ML ONE (08:55)
[2021-05-08] MEDS ORDERED: ACETAMINOPHEN 1000 MG/100 ML 100 ML IV ONE (08:56)
[2021-05-08] MEDS ORDERED: ROPIVACAINE 0.5% 5 MG/ML 30 ML SDV ONE (09:55)
[2021-05-08] MEDS ORDERED: TRANEXAMIC ACID 1,000 MG/10 ML ML ONE (10:59)
[2021-05-08] MEDS ORDERED: HYDROCODONE/APAP 5MG-325MG TAB PO PRN (11:45)
[2021-05-08] MEDS ORDERED: SODIUM CHLORIDE 0.9% 1000ML 1,000 ML IV SCH (11:45)
[2021-05-08] MEDS ORDERED: HYDROCODONE/APAP 7.5MG-325MG 1 EA TAB PO PRN (11:45)
[2021-05-08] MEDS ORDERED: DOCUSATE SODIUM 100 MG CAP PO PRN (11:45)
[2021-05-08] MEDS ORDERED: DIPHENHYDRAMINE HCL INJ 50 MG/ML VIAL IV PRN (11:45)
[2021-05-08] MEDS ORDERED: ONDANSETRON HCL INJ 2MG/ML 2ML 2 MG/ML VIAL IV PRN (11:45)
[2021-05-08] MEDS ORDERED: ZOLPIDEM TARTRATE 5 MG TAB PO PRN (11:45)
[2021-05-08] MEDS ORDERED: ACETAMINOPHEN 650 MG SUPP PR PRN (11:45)
[2021-05-08] MEDS ORDERED: KETOROLAC TROMETHAMINE 30 MG/ML VIAL IV PRN (11:45)
[2021-05-08] MEDS ORDERED: FENTANYL CITRATE/PF 100MCG/2 ML INJ ONE (13:02)
[2021-05-08 15:58] VITALS: BP 138/81
[2021-05-08] MEDS ORDERED: Cefazolin 1 GM in SODIUM CHLORIDE 0.9% 50ML 50 ML IV SCH (16:00)
[2021-05-08 16:01] VITALS: BP 138/81
[2021-05-08 16:45] VITALS: BP 138/81
[2021-05-08] MEDS ORDERED: CELECOXIB 200 MG CAP PO SCH (17:00)
[2021-05-08] MEDS ORDERED: ASPIRIN 325 MG TAB PO SCH (17:00)
[2021-05-09] MEDS ORDERED: ACETAMINOPHEN 1000 MG/100 ML IV PRN (11:45)
== END 2021-05-08 18:19 | disposition home or self-care (01) ==
LOC: OR 07:32 → PACU V 11:44 → MED/SURG 15:40
PROVIDERS: ADMIT Specialist; ATTEND Specialist
DX: M17.10 Unilateral primary osteoarthritis, unspecified knee (principal); Z20.822 Contact with and (suspected) exposure to COVID-19; Z01.818 Encounter for other preprocedural examination; M17.0 Bilateral primary osteoarthritis of knee; Z96.652 Presence of left artificial knee joint
CPT/HCPCS: 27447; 36415; 73560; 85025; 86850; 86900; 86920; 93005; 97110; 97116; 97162; C1713 ×2; C1776; G0378; J0131; J0171; J0690; J1100; J1885; J2795; J3010; J3370; J7030; J7040; U0002

== ENCOUNTER 2021-07-06 08:51 | Outpatient (RCR) | payer MEDICARE, OTHER ==
[~2021-07-06 08:51] MED LIST changes: -ROPIVACAINE 246.25 MG, EPINEPHRINE HCL 1:1000 1ML 0.5 MG, CLONIDINE HCL 0.08 MG, KETORO... INJ ONE
== END 2021-07-08 ==
LOC: PT 08:51
PROVIDERS: ATTEND Physician Assistant
DX: Z96.651 Presence of right artificial knee joint (principal); Z47.1 Aftercare following joint replacement surgery; M25.561 Pain in right knee; M62.81 Muscle weakness (generalized)

== ENCOUNTER 2021-07-27 08:59 | Outpatient (RCR) | payer MEDICARE, OTHER | END 2021-08-07 | LOC: PT 08:59 | PROVIDERS: ATTEND Physician Assistant | DX: Z47.1 Aftercare following joint replacement surgery (principal); Z96.651 Presence of right artificial knee joint ==